=== PATIENT | male | born 1965 ===

== ENCOUNTER 2018-10-05 07:34 | Emergency (ER) | payer OTHER ==
[2018-10-05 07:53] VITALS: RESP 18; TEMP 97; O2SAT 99
[2018-10-05] MEDS ORDERED: Sodium Chloride 0.9% 1,000 ML IV STA (08:59)
[2018-10-05 09:25] LABS: BASO % 0.4 % (0.0-2.0); EOS # 0.1 K/uL (0.0-0.7); EOS % 1.4 % (0.0-4.0); HEMOGLOBIN 16.6 g/dL (12.0-18.0); LYMPH # 1.5 K/uL (1.0-4.3); LYMPH % 14.3 % (20.0-40.0); MEAN CELL VOLUME 85.4 fl (80.0-94.0); MEAN CORPUSCULAR HEMOGLOBIN 28.8 pg (27.0-31.0); MEAN CORPUSCULAR HGB CONC 33.7 g/dL (33.0-37.0); MEAN PLATELET VOLUME 8.2 fl (7.2-11.7); MONO # 0.7 K/uL (0.0-0.8); NEUT # 8.1 K/uL (1.8-7.0); NEUT % 76.9 % (50.0-75.0); NRBC % 0.1 % (0.0-0.0); RBC 5.76 Mil/uL (4.40-5.90); RED CELL DISTRIBUTION WIDTH 13.8 % (11.5-14.5); WHITE BLOOD COUNT 10.5 K/uL (4.8-10.8)
[2018-10-05 09:35] LABS: ALB/GLOB RATIO 1.1 (1.0-2.1); ALT/SGPT 42 U/L (21-72); AST/SGOT 37 U/L (17-59); BLOOD UREA NITROGEN 20 mg/dl (9-20); CALCIUM 10.2 mg/dL (8.4-10.2); GFR NON-AFRICAN AMERICAN > 60
--- NOTE | 2018-10-05 09:35 | ED PDOC ---
HPI: Back Time Seen by Provider: 10/05/18 07:40 Chief Complaint (Nursing): Back Pain Chief Complaint (Provider): Back Pain History Per: Patient History/Exam Limitations: no limitations Onset/Duration Of Symptoms: Days (x4) Current Symptoms Are (Timing): Still Present Additional Complaint(s): Patient is a 53 y/o male with a PMHx of hypercholesterolemia, kidney stones, and chronic kidney disease who presents to the ED for evaluation of right flank pain that comes and goes for the past four days. Patient states the pain is exacerbated on movement and has been worsening since last night, thus, prompting his ED visit. Patient denies abdominal pain and urinary symptoms. PCP: Dr. Concepcion ([place]) Past Medical History Reviewed: Historical Data, Nursing Documentation, Vital Signs Vital Signs: Last Vital Signs Temp 97 F L 10/05/18 07:50 Pulse 79 10/05/18 07:50 Resp 18 10/05/18 07:50 BP Pulse Ox 99 10/05/18 07:50 - Medical History PMH: Hypercholesterolemia, Kidney Stones, Chronic Kidney Disease - Surgical History Surgical History: Back Surgery - Family History Family History: States: Unknown Family Hx - Social History Current smoker - smoking cessation education provided: Yes SMOKER/PACKS PER DAY:: 1 - Home Medications Home Medications: Ambulatory Orders Medication Instructions Recorded Atorvastatin [Lipitor] 40 mg PO DAILY 12/12/15 Azithromycin [Zithromax] 250 mg PO DAILY #6 tablet 12/12/15 Nicotine 21 mg/24 hr [Nicoderm Cq] 1 patch TD DAILY 12/12/15 Nitrofurantoin Macrocrystals 100 mg PO BID #14 cap 12/12/15 [Macrobid] Tamsulosin [Flomax] 0.4 mg PO DAILY #14 cap 12/12/15 Ciprofloxacin [Cipro] 500 mg PO BID #14 tab 05/30/16 oxyCODONE/Acetaminophen [Percocet 1 tab PO TID PRN #8 tab 05/30/16 5/325 mg Tab] traMADol [Ultram] 50 mg PO TID PRN #12 tab 05/30/16 Nitrofurantoin Macrocrystals 100 mg PO BID #14 cap 06/22/16 [Macrobid] oxyCODONE/Acetaminophen [Percocet 1 tab PO Q6H PRN #15 tab 06/22/16 5/325 mg Tab] Ibuprofen [Motrin] 600 mg PO TID 7 Days tab 07/23/16 Tamsulosin [Flomax] 0.4 mg PO DAILY PRN #6 cap 07/23/16 Ibuprofen [Motrin] 600 mg PO Q6H PRN #20 tab 10/05/18 Nitrofurantoin Macrocrystals 100 mg PO BID #14 cap 10/05/18 [Macrobid] Tamsulosin [Flomax] 0.4 mg PO DAILY #14 cap 10/05/18 - Allergies Allergies/Adverse Reactions: Allergies Allergy/AdvReac Type Severity Reaction Status Date / Time No Known Allergies Allergy Verified 07/23/16 07:27 Review of Systems ROS Statement: Except As Marked, All Systems Reviewed And Found Negative Gastrointestinal: Negative for: Abdominal Pain Genitourinary Male: Negative for: Dysuria, Frequency, Incontinence Musculoskeletal: Positive for: Back Pain (right flank) Physical Exam - Reviewed Nursing Documentation Reviewed: Yes Vital Signs Reviewed: Yes - Physical Exam Appears: Positive for: No Acute Distress (texting) Head Exam: Positive for: ATRAUMATIC, NORMAL INSPECTION, NORMOCEPHALIC Skin: Positive for: Normal Color, Warm, Dry Eye Exam: Positive for: EOMI, Normal appearance, PERRL Neck: Positive for: Normal, Painless ROM, Supple Cardiovascular/Chest: Positive for: Regular Rate, Rhythm. Negative for: Murmur Respiratory: Positive for: Normal Breath Sounds. Negative for: Respiratory Distress Gastrointestinal/Abdominal: Positive for: Normal Exam, Soft. Negative for: Tenderness Back: Positive for: Normal Inspection. Negative for: L CVA Tenderness, R CVA Tenderness, Vertebral Tenderness Extremity: Positive for: Normal ROM. Negative for: Pedal Edema, Deformity Neurological/Psych: Positive for: Alert, Oriented - Laboratory Results Result Diagrams: 10/05/18 09:00 10/05/18 09:00 - ECG O2 Sat by Pulse Oximetry: 99 (RA) Pulse Ox Interpretation: Normal Medical Decision Making Medical Decision Making: Time: 08 Impression: Right Flank Pain; r/o kidney stone, rule out UTI Plan: CMP CBC IV Fluids Toradol 30 mg IV Urine C&S UA CT Abd/Pelvis w/o PO Contrast Time: 1251 FINDINGS: LOWER THORAX: Dependent atelectasis, scarring identified at the lung bases similar distribution compared to the prior study. No new abnormalities detected. LIVER: Unremarkable. No gross lesion or ductal dilatation. GALLBLADDER AND BILE DUCTS: Unremarkable. PANCREAS: Unremarkable. No gross lesion or ductal dilatation. SPLEEN: Unremarkable. ADRENALS: Unremarkable. No mass. KIDNEYS AND URETERS: Multiple bilateral renal calculi, the larger and more numerous are on the right. The largest calculus in the right collecting system measures 8 x 14 mm. Previously the largest fragment measured 17 x 19 mm. Additional smaller fragments reside in the right renal pelvis. Additional smaller more peripheral calculi identified. Incidental finding(s): Simple renal cysts again identified. VASCULATURE: Unremarkable. No aortic aneurysm. No atherosclerotic calcification or mural plaque present. BOWEL: Unremarkable. No obstruction. No gross mural thickening. APPENDIX: A normal appendix is visualized in it's entirety. Incidental finding(s): Multiple small phleboliths again identified. PERITONEUM: Unremarkable. No free fluid. No free air. LYMPH NODES: Unremarkable. No enlarged lymph nodes. BLADDER: Solitary bladder calculus near the left ureterovesical junction 7 mm. REPRODUCTIVE: Unremarkable. BONES: No acute fracture. Multilevel canal stenosis noted from L3-4 to L5-S1. OTHER FINDINGS: None. IMPRESSION: Multiple upper tract calculi right kidney. Smaller fragments identified than the dominant staghorn calculus identified 06/22/2016. Mild distention of the right collecting system identified. No ureteral calculi identified. Solitary bladder calculus noted. Additional benign and/or incidental findings described above. reeval after CT resulted. pt aware of CT results and wants referral to urologist. pt pain free and tolerating po, pt stable for dc. Scribe Attestation: Documented by Jacoby Montoya, acting as a scribe forRoxane Sanchez MD. Provider Scribe Attestation: All medical record entries made by the Scribe were at my direction and personally dictated by me. I have reviewed the chart and agree that the record accurately reflects my personal performance of the history, physical exam, medical decision making, and the department course for this patient. I have also personally directed, reviewed, and agree with the discharge instructions and disposition. Disposition - Clinical Impression Clinical Impression: Renal calculus, Kidney stone on right side, Bladder stone - Patient ED Disposition Is Patient to be Admitted: No Counseled Patient/Family Regarding: Studies Performed, Diagnosis, Need For Foll owup - Disposition Referrals: [facility] [Outside] Nadya Gonzalez MD [Medical Doctor] - Disposition: Routine/Home Disposition Time: 13:10 Condition: IMPROVED Additional Instructions: follow up with urologist in 3 days return to the ED with any worsening or concerning symptoms Prescriptions: Ibuprofen [Motrin] 600 mg PO Q6H PRN #20 tab PRN Reason: Pain, Moderate (4-7) Nitrofurantoin Macrocrystals [Macrobid] 100 mg PO BID #14 cap Tamsulosin [Flomax] 0.4 mg PO DAILY #14 cap Instructions: Kidney Stones in Adults Forms: [employer] (Greek)
[2018-10-05 09:39] LABS: SQUAMOUS EPITHIAL < 1 /hpf (0-5); URINE BILIRUBIN NEGATIVE (NEGATIVE); URINE BLOOD SMALL (NEGATIVE); URINE CLARITY CLOUDY (Clear); URINE GLUCOSE (UA) NEG (NEGATIVE); URINE LEUKOCYTE ESTERASE NEG Leu/uL (Negative); URINE PROTEIN 100 mg/dL (NEGATIVE); URINE UROBILINOGEN 0.2-1.0 mg/dL (0.2-1.0)
[2018-10-05 09:45] LABS: URINE COLOR YELLOW (YELLOW)
--- NOTE | 2018-10-05 12:55 | CT ---
Date of service: 10/05/2018 PROCEDURE: CT Abdomen and Pelvis without intravenous contrast HISTORY: flank pain COMPARISON: 05/30/2016, 06/22/[address] scans of the abdomen and pelvis. The prior studies documenting obstructive uropathy related to right renal pelvis calculus disease. TECHNIQUE: Unenhanced. Neither IV nor oral contrast administered Radiation dose: Total exam DLP = 847.95 mGy-cm. This CT exam was performed using one or more of the following dose reduction techniques: Automated exposure control, adjustment of the mA and/or kV according to patient size, and/or use of iterative reconstruction technique. FINDINGS: LOWER THORAX: Dependent atelectasis, scarring identified at the lung bases similar distribution compared to the prior study. No new abnormalities detected. LIVER: Unremarkable. No gross lesion or ductal dilatation. GALLBLADDER AND BILE DUCTS: Unremarkable. PANCREAS: Unremarkable. No gross lesion or ductal dilatation. SPLEEN: Unremarkable. ADRENALS: Unremarkable. No mass. KIDNEYS AND URETERS: Multiple bilateral renal calculi, the larger and more numerous are on the right. The largest calculus in the right collecting system measures 8 x 14 mm. Previously the largest fragment measured 17 x 19 mm. Additional smaller fragments reside in the right renal pelvis. Additional smaller more peripheral calculi identified. Incidental finding(s): Simple renal cysts again identified. VASCULATURE: Unremarkable. No aortic aneurysm. No atherosclerotic calcification or mural plaque present. BOWEL: Unremarkable. No obstruction. No gross mural thickening. APPENDIX: A normal appendix is visualized in it's entirety. Incidental finding(s): Multiple small phleboliths again identified. PERITONEUM: Unremarkable. No free fluid. No free air. LYMPH NODES: Unremarkable. No enlarged lymph nodes. BLADDER: Solitary bladder calculus near the left ureterovesical junction 7 mm. REPRODUCTIVE: Unremarkable. BONES: No acute fracture. Multilevel canal stenosis noted from L3-4 to L5-S1. OTHER FINDINGS: None. IMPRESSION: Multiple upper tract calculi right kidney. Smaller fragments identified than the dominant staghorn calculus identified 06/22/2016. Mild distention of the right collecting system identified. No ureteral calculi identified. Solitary bladder calculus noted. Additional benign and/or incidental findings described above.
[2018-10-05 13:59] VITALS: BP 138/83; PULSE 76
== END 2018-10-05 13:58 | disposition home or self-care (01) ==
LOC: H.ER 07:34
DX: N20.0 Calculus of kidney (principal); N21.0 Calculus in bladder; E78.00 Pure hypercholesterolemia, unspecified
CPT/HCPCS: 74176; 80053; 81003; 85025; 87086; 96374; 99283; J1885; J7030

== ENCOUNTER 2018-10-08 05:59 | Emergency (ER) | payer OTHER ==
--- NOTE | 2018-10-08 07:30 | ED PDOC ---
History of Present Illness History of Present Illness: This is 53 y/o male with PMH of kidney stones and HLD comes to the ER c/o 1 day hx of subjective fever, chills, sweating, cold, generalized body aches, coughing and headaches. As per patient all symptoms started last night, presented to ER 3 days ago for kidney stones and d/c home on ibuprofen/Macrobid and flomax. Patient currently denies any dysuria. Reports took ibuprofen at 5 am this morning. Denies any chest pain, SOB, abdominal pain or weakness. + back pain. PMH: Kidney stones and HLD PSH: Back surgery 5 years ago Allg: NKDA FH: Denies SH: Denies any alcohol, smoking or drug use ROS: As per HPI <Meng Huang - Last Filed: 10/08/18 11:18> HPI: Influenza <Meng Huang - Last Filed: 10/08/18 11:18> <Pawel Martinez III - Last Filed: 10/08/18 16:29> Time Seen by Provider: 10/08/18 07:04 Chief Complaint: Cough, Cold, Congestion Past Medical History Vital Signs: Last Vital Signs Temp 97.5 F L 10/08/18 06:08 Pulse 87 10/08/18 06:08 Resp 17 10/08/18 06:08 BP 114/78 10/08/18 06:08 Pulse Ox 95 10/08/18 06:08 - Medical History PMH: Hypercholesterolemia, Kidney Stones, Chronic Kidney Disease - Surgical History Surgical History: Back Surgery (Lower back 1997) - Family History Family History: States: Unknown Family Hx <Meng Huang - Last Filed: 10/08/18 11:18> Vital Signs: Last Vital Signs Temp 98.1 F 10/08/18 12:13 Pulse 82 10/08/18 12:13 Resp 16 10/08/18 12:13 BP 122/82 10/08/18 12:13 Pulse Ox 97 10/08/18 12:13 <Pawel Martinez III - Last Filed: 10/08/18 16:29> - Home Medications Home Medications: Ambulatory Orders Medication Instructions Recorded Atorvastatin [Lipitor] 40 mg PO DAILY 12/12/15 Azithromycin [Zithromax] 250 mg PO DAILY #6 tablet 12/12/15 Nicotine 21 mg/24 hr [Nicoderm Cq] 1 patch TD DAILY 12/12/15 Nitrofurantoin Macrocrystals 100 mg PO BID #14 cap 12/12/15 [Macrobid] Tamsulosin [Flomax] 0.4 mg PO DAILY #14 cap 12/12/15 Ciprofloxacin [Cipro] 500 mg PO BID #14 tab 05/30/16 oxyCODONE/Acetaminophen [Percocet 1 tab PO TID PRN #8 tab 05/30/16 5/325 mg Tab] traMADol [Ultram] 50 mg PO TID PRN #12 tab 05/30/16 Nitrofurantoin Macrocrystals 100 mg PO BID #14 cap 06/22/16 [Macrobid] oxyCODONE/Acetaminophen [Percocet 1 tab PO Q6H PRN #15 tab 06/22/16 5/325 mg Tab] Ibuprofen [Motrin] 600 mg PO TID 7 Days tab 07/23/16 Tamsulosin [Flomax] 0.4 mg PO DAILY PRN #6 cap 07/23/16 Ibuprofen [Motrin] 600 mg PO Q6H PRN #20 tab 10/05/18 Nitrofurantoin Macrocrystals 100 mg PO BID #14 cap 10/05/18 [Macrobid] Tamsulosin [Flomax] 0.4 mg PO DAILY #14 cap 10/05/18 Ciprofloxacin HCl [Cipro] 250 mg PO Q12 7 Days #14 tablet 10/08/18 Ibuprofen [Motrin Tab] 600 mg PO Q6H PRN #30 tab 10/08/18 Oseltamivir Cap [Tamiflu] 75 mg PO BID #10 cap 10/08/18 Tamsulosin [Flomax] 0.4 mg PO DAILY 30 Days #30 cap 10/08/18 - Allergies Allergies/Adverse Reactions: Allergies Allergy/AdvReac Type Severity Reaction Status Date / Time No Known Allergies Allergy Verified 10/08/18 06:09 Review of Systems Constitutional: Positive for: Fever (subjective), Chills, Sweats, Malaise. Negative for: Weakness Eyes: Negative for: Pain, Vision Change ENT: Negative for: Ear Pain, Ear Discharge, Nose Pain Cardiovascular: Negative for: Chest Pain, Palpitations Respiratory: Negative for: Cough, Shortness of Breath Gastrointestinal: Negative for: Nausea, Vomiting, Abdominal Pain, Diarrhea Genitourinary Male: Negative for: Dysuria, Frequency, Incontinence Musculoskeletal: Positive for: Other (Generalized body aches ). Negative for: Neck Pain, Shoulder Pain Skin: Negative for: Rash Neurological: Negative for: Weakness, Numbness Psych: Negative for: Anxiety <Meng Huang - Last Filed: 10/08/18 11:18> Physical Exam - Physical Exam Appears: Positive for: No Acute Distress Head Exam: Positive for: NORMAL INSPECTION Skin: Positive for: Normal Color Eye Exam: Positive for: Normal appearance ENT: Positive for: Normal ENT Inspection Neck: Positive for: Normal Cardiovascular/Chest: Positive for: Regular Rate, Rhythm Respiratory: Positive for: Normal Breath Sounds. Negative for: Decreased Breath Sounds, Accessory Muscle Use, Crackles Gastrointestinal/Abdominal: Positive for: Normal Exam, Soft. Negative for: Tenderness Back: Positive for: Normal Inspection. Negative for: L CVA Tenderness, R CVA Tenderness Extremity: Positive for: Normal ROM. Negative for: Tenderness, Pedal Edema, Calf Tenderness Neurological/Psych: Positive for: Awake, Alert, Normal Tone, Oriented, engineering research manager II- XII <Meng Huang - Last Filed: 10/08/18 11:18> Medical Decision Making Medical Decision Making: Flu like symptoms, Kidney stones, UTI <Meng Huang - Last Filed: 10/08/18 11:18> - Laboratory Results Result Diagrams: 10/08/18 09:00 10/08/18 09:00 - ECG O2 Sat by Pulse Oximetry: 95 - Progress ED Course And Treament: A/P: 53 y/o male with PMH of kidney stones and HLD comes to the ER c/o 1 day hx of subjective fever, chills, sweating, cold, generalized body aches, coughing and headaches. Flu like symptoms - Ultam 50 PO - UA and Ucx due to recent hx of kidney stones Case discussed with Dr. Martinez Will treat for Flu once UA comes back negative Patient understands and agrees with plan UA: + WBCs CBC and CMP wnl Flu negative S/p Rocephin x 1 Re-evaluation Time: 11:17 Condition: Improved <Meng Huang - Last Filed: 10/08/18 11:18> - Laboratory Results Result Diagrams: 10/08/18 09:00 10/08/18 09:00 Lab Results: Total Bilirubin 0.7 mg/dl (0.2-1.3) 10/08/18 09:00 AST 34 U/L (17-59) 10/08/18 09:00 ALT 38 U/L (21-72) 10/08/18 09:00 Alkaline Phosphatase 56 U/L (38-126) 10/08/18 09:00 Total Protein 7.1 G/DL (6.3-8.2) 10/08/18 09:00 Albumin 4.1 g/dL (3.5-5.0) 10/08/18 09:00 Globulin 3.1 gm/dL (2.2-3.9) 10/08/18 09:00 Albumin/Globulin Ratio 1.3 (1.0-2.1) 10/08/18 09:00 Urine Color Ava (YELLOW) 10/08/18 07:30 Urine Clarity Cloudy (Clear) 10/08/18 07:30 Urine pH 5.0 (5.0-8.0) 10/08/18 07:30 Ur Specific [place] 1.027 (1.003-1.030) 10/08/18 07:30 Urine Protein 100 mg/dL (NEGATIVE) 10/08/18 07:30 Urine Glucose (UA) Neg mg/dL (NEGATIVE) 10/08/18 07:30 Urine Ketones Trace mg/dL (NEGATIVE) 10/08/18 07:30 Urine Blood Small (NEGATIVE) 10/08/18 07:30 Urine Nitrate Negative (NEGATIVE) 10/08/18 07:30 Urine Bilirubin Negative (NEGATIVE) 10/08/18 07:30 Urine Urobilinogen 2.0 mg/dL (0.2-1.0) 10/08/18 07:30 Ur Leukocyte Esterase Small Julio/uL (Negative) 10/08/18 07:30 Urine RBC (Auto) 64 /hpf (0-3) H 10/08/18 07:30 Urine Microscopic WBC 30 /hpf (0-5) H 10/08/18 07:30 Ur Squamous Epith Cells 1 /hpf (0-5) 10/08/18 07:30 Calcium Oxalate Crystal Mod /hpf (<OCC) H 10/08/18 07:30 Hyaline Casts 0-2 /hpf (0-2) 10/08/18 07:30 <Pawel Martinez III - Last Filed: 10/08/18 16:29> Disposition - Patient ED Disposition Is Patient to be Admitted: No - Disposition Disposition: Routine/Home Disposition Time: 07:40 <Meng Huang - Last Filed: 10/08/18 11:18> <Pawel Martinez III - Last Filed: 10/08/18 16:29> - Clinical Impression Clinical Impression: UTI (urinary tract infection), Renal calculus, Bladder stone - Disposition Referrals: Nadya Gonzalez MD [Medical Doctor] - Meng Huang MD [Emergency Midlevel Provider] - Condition: FAIR Additional Instructions: Stop macrobid. Start cipro/ tamiflu for flu like symptoms and evidence of UTI. Return to the ER if symptoms get worse or do not resolve in 2 -3 days F/u with PMD in one week You will be called if your cultures become positive and need medications adjusted. Prescriptions: Ciprofloxacin HCl [Cipro] 250 mg PO Q12 7 Days #14 tablet Ibuprofen [Motrin Tab] 600 mg PO Q6H PRN #30 tab PRN Reason: Pain, Moderate (4-7) Oseltamivir Cap [Tamiflu] 75 mg PO BID #10 cap Tamsulosin [Flomax] 0.4 mg PO DAILY 30 Days #30 cap Instructions: Flu, Flu, Adult (DC) Forms: [employer] (Luxembourgish) Print Language: SWEDISH Attending/Attestation - Attestation I have personally seen and examined this patient.: Yes I have fully participated in the care of the patient.: Yes I have reviewed all pertinent clinical information: Yes Notes (Text): 10/08/18 16:28 pt seen/examined, agree w resident findings, empiric treatment w Abx given recent renal colic with WBC in urine, otherwise well appearing in ED, afebrile, flu neg but offer empiric tamiflu tx given classic flu symptoms. Followup cultures, indication for return ED discussed. <Pawel Martinez III - Last Filed: 10/08/18 16:29>
[2018-10-08 07:51] LABS: SQUAMOUS EPITHIAL 1 /hpf (0-5); URINE BILIRUBIN NEGATIVE (NEGATIVE); URINE BLOOD SMALL (NEGATIVE); URINE CALCIUM OXALATE CRYSTALS MOD /hpf (<OCC); URINE CLARITY CLOUDY (Clear); URINE COLOR AMBER (YELLOW); URINE GLUCOSE (UA) NEG (NEGATIVE); URINE HYALINE CAST 0-2 /hpf (0-2); URINE LEUKOCYTE ESTERASE SMALL Leu/uL (Negative); URINE PROTEIN 100 mg/dL (NEGATIVE)
[2018-10-08] MEDS ORDERED: Sodium Chloride 0.9% 1,000 ML IV STA (08:34)
[2018-10-08 09:09] LABS: BASO % 0.5 % (0.0-2.0); EOS # 0.6 K/uL (0.0-0.7); EOS % 6.5 % (0.0-4.0); HEMOGLOBIN 15.4 g/dL (12.0-18.0); LYMPH # 0.8 K/uL (1.0-4.3); MEAN CELL VOLUME 84.8 fl (80.0-94.0); MEAN CORPUSCULAR HEMOGLOBIN 28.8 pg (27.0-31.0); MEAN PLATELET VOLUME 7.7 fl (7.2-11.7); MONO # 0.9 K/uL (0.0-0.8); NEUT # 6.3 K/uL (1.8-7.0); PLATELET COUNT 181 K/uL (130-400); RBC 5.35 Mil/uL (4.40-5.90); RED CELL DISTRIBUTION WIDTH 13.6 % (11.5-14.5); WHITE BLOOD COUNT 8.6 K/uL (4.8-10.8)
[2018-10-08 09:24] LABS: ALB/GLOB RATIO 1.3 (1.0-2.1); ALBUMIN 4.1 g/dL (3.5-5.0); ALT/SGPT 38 U/L (21-72); AST/SGOT 34 U/L (17-59); BLOOD UREA NITROGEN 12 mg/dl (9-20); CALCIUM 9.5 mg/dL (8.4-10.2); GFR NON-AFRICAN AMERICAN > 60
[2018-10-08 10:01] LABS: EOSINOPHIL 7 % (0-7); LYMPHOCYTE 15 % (20-50); MONOCYTE 9 % (0-10); NEUTROPHIL 69 % (42-75); PLATELET ESTIMATE NORMAL (NORMAL); TOTAL CELLS COUNTED 100
[2018-10-08] MEDS ORDERED: cefTRIAXone (Rocephin) 1 gm Inj ONE (10:34)
[2018-10-08 12:14] VITALS: BP 122/82; PULSE 82; RESP 16; TEMP 98.1; O2SAT 97
== END 2018-10-08 12:13 | disposition home or self-care (01) ==
LOC: H.ER 05:59
DX: N39.0 Urinary tract infection, site not specified (principal); N21.0 Calculus in bladder; N20.0 Calculus of kidney; E78.00 Pure hypercholesterolemia, unspecified
CPT/HCPCS: 80053; 81003; 85025; 87040; 87086; 87804; 96361; 96365; 99285; J0696; J7030